=== PATIENT | female | born 1980 | race Caucasian/White ===

== ENCOUNTER 2020-12-03 09:39 | Emergency (ER) | payer OTHER, MEDICAID ==
[~2020-12-03] VITALS: Ht 180.3 cm; Wt 97.5 kg
[~2020-12-03 09:39] MED LIST: ACETAMINOPHEN-1 EAC1 PO; CARISOPRODOL 3350 MG PO; CIPRO500 MG PO; CLEOCIN HCL300 MG PO; DEPO-PROVERA; DOXYCYCLINE 10100 MG PO; FLEXERIL PO; HUMIRA40 MG/0.8; IBUPROFEN 800800 M1 PO; IMITREX; INDERAL80 MG; MEDROLDOSEPACK PO; NOHOMEMEDICATIONS; NORCO 5-325 TA1 EACH PO; PERCOCET 5-3251 EACH PO; ROBAXIN 750 MG750 M1 PO; TRAMADOL 50 MG50 MG PO; ZOFRAN4 MG PO
[2020-12-03] MEDS ORDERED: ZPAK PO (10:08)
[2020-12-03 10:19] VITALS: BP 172/96
== END 2020-12-03 10:19 | disposition home or self-care (01) ==
LOC: M.ERS 09:39
DX: H66.93 Otitis media, unspecified, bilateral (principal); F17.210 Nicotine dependence, cigarettes, uncomplicated; Z88.0 Allergy status to penicillin; Z88.2 Allergy status to sulfonamides; Z98.890 Other specified postprocedural states